=== PATIENT | female | born 1980 | race Caucasian/White ===

== ENCOUNTER 2020-05-02 08:17 | Day surgery (SDC) | payer OTHER ==
[~2020-05-02] VITALS: Ht 172.7 cm; Wt 137.5 kg
[~2020-05-02 08:17] MED LIST: CYCL10 PO; Crutch1 EACH MISC; HYDACE5 PO; IBUP800 PO; INDO25 PO; LEVSOD100 PO; MECL25 PO; METF500C PO; MULVITMINE PO; NAPR500 PO; Norco 5-325 Ta1 EACH PO; Omeprazole20 M1; PARO10 PO; PROM25 PO; SERT100 PO; SPIR25 PO; Zoloft100 MG PO
--- NOTE | 2020-05-02 10:29 | NUR ---
05/02/20 1029 Catina Finn PT NOTIFIED OF DELAY. PT RESTING COMFORTABLY WITH SPOUSE AT BEDSIDE, CALL LIGHT WITHIN REACH. DENIES NEEDS AT THIS TIME.
== END 2020-05-02 13:05 | disposition home or self-care (01) ==
LOC: ORSCSDS 08:17
PROVIDERS: Podiatrist Foot & Ankle Surgery
PROC: 0SBF4ZZ Excision of Right Ankle Joint, Percutaneous Endoscopic Approach (ICD-10-PCS; principal; 2020-05-02 10:00)
PROC: 0MQQ0ZZ Repair Right Ankle Bursa and Ligament, Open Approach (ICD-10-PCS; principal; 2020-05-02 10:00)
DX: M25.371 Other instability, right ankle (principal); M67.271 Synovial hypertrophy, not elsewhere classified, right ankle and foot; G47.33 Obstructive sleep apnea (adult) (pediatric); Z87.891 Personal history of nicotine dependence; E03.9 Hypothyroidism, unspecified; E66.01 Morbid (severe) obesity due to excess calories; Z68.42 Body mass index [BMI] 45.0-49.9, adult; Z79.899 Other long term (current) drug therapy
CPT/HCPCS: C1713; J0171; J0690; J1100; J1885; J2250; J2405; J2704; J3010; J7120

== ENCOUNTER 2020-12-15 07:45 | Emergency (ER) | payer OTHER ==
[~2020-12-15] VITALS: Ht 170.2 cm; Wt 134.7 kg
[2020-12-15] MEDS ORDERED: AMOCLA875 PO (08:16)
[2020-12-15 09:43] LABS: BASOPHILS ABSOLUTE AUTO 0.02 K/mm3 (0.00-0.23); BASOPHILS PERCENT AUTO 0 % (0-2); EOSINOPHILS PERCENT AUTO 2 % (0-6); Hematocrit 40.6 % (33.0-51.0); Hemoglobin 14.3 g/dL (11.5-16.0); IMMATURE GRAN ABSOLUTE AUTO 0.02 K/mm3 (0.00-0.10); IMMATURE GRAN PERCENT AUTO 0 % (0-1); LYMPHOCYTES ABSOLUTE AUTO 1.84 K/mm3 (0.84-5.20); LYMPHOCYTES PERCENT AUTO 28 % (21-46); MONOCYTES ABSOLUTE AUTO 0.45 K/mm3 (0.16-1.47); MONOCYTES PERCENT AUTO 7 % (4-13); Mean Corpuscular HGB 28.3 pg (26.0-34.0); Mean Corpuscular HGB Conc 35.2 g/dL (31.5-36.5); Mean Corpuscular Volume 80 fL (80-100); Mean Platelet Volume 9.4 fL (9.1-12.4); NEUTROPHILS ABSOLUTE AUTO 4.17 K/mm3 (1.96-9.15); NEUTROPHILS PERCENT AUTO 63 % (41-73); Platelet Count 274 K/mm3 (150-400); RDW Coefficient Variation 13.5 % (11.7-14.2); Red Blood Cell Count 5.05 M/mm3 (3.80-5.20)
[2020-12-15 09:50] LABS: Appearance, Urine Clear (Clear); Bilirubin, Urine Neg (Neg); Blood, Urine Neg (Neg); Color, Urine Yellow (P-Yellow); Glucose Qualitative, Urine Neg (Neg); Ketones, Urine Neg (Neg); Leukocyte Esterase, Urine Neg (Neg); Nitrite, Urine Neg (Neg); Protein, Urine Neg (Neg); Source, Urine Clean Catch; Urobilinogen, Urine NORM (Normal)
[2020-12-15 10:12] LABS: Alanine Aminotransfer (ALT/SGP 33 U/L (12-78); Albumin, Blood 3.8 g/dL (3.4-5.0); Albumin/Globulin Ratio 1.2 (0.8-1.8); Alk Phos 64 U/L (50-136); Anion Gap 7 mmol/L (6-16); Aspartate Aminotrans (AST/SGOT 15 U/L (12-37); Bilirubin, Total 0.5 mg/dL (0.1-1.0); Blood Urea Nitrogen 11 mg/dL (8-24); Bun/Creatinine Ratio 16.6 (12.0-20.0); CO2, Blood 24 mmol/L (21-32); Chloride, Blood 109 mmol/L (98-108); Creatinine, Blood 0.66 mg/dL (0.40-1.00); Globulin, Blood 3.3 g/dL (2.2-4.0); Glomerular Filtration Rate >60 (60-); Glucose, Blood 92 mg/dL (70-99); Potassium, Blood 4.1 mmol/L (3.5-5.5); Sodium, Blood 140 mmol/L (136-145); Total Protein, Blood 7.1 g/dL (6.4-8.2)
[2020-12-15] MEDS ORDERED: Naprosyn500 MG PO (11:20)
[2020-12-15] MEDS ORDERED: Roxicodone5 MG PO (11:45)
== END 2020-12-15 12:00 | disposition home or self-care (01) ==
LOC: ER 07:45
PROVIDERS: Emergency Medicine
DX: M54.5 Low back pain (principal); Z79.84 Long term (current) use of oral hypoglycemic drugs; Z79.899 Other long term (current) drug therapy
CPT/HCPCS: 36415; 51798; 80053; 81003; 81025; 85025; 96372-59; 96374; 99283-25; A9270; J1170; J1885

== ENCOUNTER → 2022-04-19 | Outpatient (CLI) | payer OTHER ==
[~2022-04-19] MED LIST changes: +AMOCLA875 PO; +Naprosyn500 MG PO; +Roxicodone5 MG PO
[2022-04-20 11:02] LABS: Candida species (DNA Probe) Negative (NEGATIVE); G. vaginalis (DNA Probe) Positive (NEGATIVE); T. vaginalis (DNA Probe) Negative (NEGATIVE)
[2022-04-21 13:10] LABS: CHLAMYDIA BY NAA Negative (Negative); GONOCOCCUS BY NAA Negative (Negative); TRICH VAG BY NAA Negative (Negative)
== END | disposition home or self-care (01) ==
LOC: LAB SHORT 12:48 → LAB 12:48
PROVIDERS: Family Medicine
DX: Z11.3 Encounter for screening for infections with a predominantly sexual mode of transmission (principal); N89.9 Noninflammatory disorder of vagina, unspecified
CPT/HCPCS: 87480; 87491; 87510; 87591; 87660; 87661

== ENCOUNTER 2022-05-14 16:25 | Emergency (ER) | payer OTHER ==
[~2022-05-14] VITALS: Ht 172.7 cm; Wt 71.2 kg
[2022-05-14 16:41] LABS: Source, Urine Clean Catch
[2022-05-14 16:47] LABS: BASOPHILS ABSOLUTE AUTO 0.03 K/mm3 (0.00-0.23); BASOPHILS PERCENT AUTO 0 % (0-2); EOSINOPHILS ABSOLUTE AUTO 0.08 K/mm3 (0.00-0.68); EOSINOPHILS PERCENT AUTO 1 % (0-6); Hematocrit 40.1 % (33.0-51.0); Hemoglobin 13.8 g/dL (11.5-16.0); IMMATURE GRAN ABSOLUTE AUTO 0.01 K/mm3 (0.00-0.10); IMMATURE GRAN PERCENT AUTO 0 % (0-1); LYMPHOCYTES ABSOLUTE AUTO 2.45 K/mm3 (0.84-5.20); LYMPHOCYTES PERCENT AUTO 37 % (21-46); MONOCYTES ABSOLUTE AUTO 0.33 K/mm3 (0.16-1.47); MONOCYTES PERCENT AUTO 5 % (4-13); Mean Corpuscular HGB 30.5 pg (26.0-34.0); Mean Corpuscular HGB Conc 34.4 g/dL (31.5-36.5); Mean Corpuscular Volume 89 fL (80-100); Mean Platelet Volume 10.2 fL (9.1-12.4); NEUTROPHILS ABSOLUTE AUTO 3.78 K/mm3 (1.96-9.15); NEUTROPHILS PERCENT AUTO 57 % (41-73); Platelet Count 250 K/mm3 (150-400); RDW Coefficient Variation 12.7 % (11.7-14.2); RDW Standard Deviation 41.7 fL (35.1-46.3); Red Blood Cell Count 4.53 M/mm3 (3.80-5.20); White Blood Cell Count 6.68 K/mm3 (4.00-11.30)
[2022-05-14 16:48] LABS: Appearance, Urine Clear (Clear); Bilirubin, Urine Neg (Neg); Blood, Urine 1+ (Neg); Color, Urine Yellow (P-Yellow); Glucose Qualitative, Urine Neg (Neg); Ketones, Urine Neg (Neg); Leukocyte Esterase, Urine Neg (Neg); Nitrite, Urine Neg (Neg); Protein, Urine Neg (Neg); Specific Gravity, Urine 1.015 (1.003-1.022); Urobilinogen, Urine NORM (Normal)
[2022-05-14 16:59] LABS: Red Blood Cells, Urine 0-2 /hpf (0-2); Squamous Epithelial Cells Rare /hpf (Few); White Blood Cells, Urine 0-2 /hpf (0-5)
[2022-05-14 17:03] LABS: Bacteria Few /hpf
[2022-05-14] MEDS ORDERED: PREG100 PO (18:35)
[2022-05-14 19:35] LABS: Albumin, Blood 3.7 g/dL (3.4-5.0); Albumin/Globulin Ratio 1.2 (0.8-1.8); Bilirubin, Total 0.6 mg/dL (0.1-1.0); Bun/Creatinine Ratio 25.5 (12.0-20.0); Calcium, Blood 8.8 mg/dL (8.5-10.1); Creatinine, Blood 0.75 mg/dL (0.40-1.00); Globulin, Blood 3.1 g/dL (2.2-4.0); Potassium, Blood 4.4 mmol/L (3.5-5.5); Total Protein, Blood 6.8 g/dL (6.4-8.2)
[2022-05-14] MEDS ORDERED: Norco 5-325 Ta1 EACH PO (22:37)
== END 2022-05-14 23:12 | disposition home or self-care (01) ==
LOC: ER 16:25
PROVIDERS: Physician Assistant
DX: K80.50 Calculus of bile duct without cholangitis or cholecystitis without obstruction (principal); K21.9 Gastro-esophageal reflux disease without esophagitis; E03.9 Hypothyroidism, unspecified; Z79.899 Other long term (current) drug therapy; Z88.6 Allergy status to analgesic agent; Z88.5 Allergy status to narcotic agent; Z87.891 Personal history of nicotine dependence; Z98.84 Bariatric surgery status
CPT/HCPCS: 36415; 74177; 76705; 80053; 81001; 81025; 83690; 85025; 99284-25; Q9967

== ENCOUNTER → 2022-05-24 | Outpatient (CLI) | payer OTHER ==
[~2022-05-24] MED LIST changes: +PREG100 PO
== END | disposition home or self-care (01) ==
LOC: LAB SHORT 08:46
DX: J02.9 Acute pharyngitis, unspecified (principal)
CPT/HCPCS: 87081

== ENCOUNTER 2022-07-23 06:17 | Day surgery (SDC) | payer OTHER ==
[~2022-07-23] VITALS: Ht 172.7 cm; Wt 69.0 kg
--- NOTE | 2022-07-23 07:13 | NUR ---
07/23/22 0713 Pedro Benjmain FIRST IV ATTEMPT FAILED BY RN SECOND AND THIRD IV ATTEMTS FAILED BY 2ND RN LAST ATTEMT SUCCESSFUL BY 3RD RN
--- NOTE | 2022-07-23 09:18 | NUR ---
07/23/22 0918 LINDSAY KING PAIN 5-6/10, CRAMPY. STATES SHOULDERS ARE SORE WELL. LYING RECLINER IN LEANED BACK POSITION. EATING AND DRINKING W/O DIFFICULTY. SON IN ROOM WITH PT. PT STATES VICODIN CAUSES ITCHING - BUT STILL WANTS PO NORCO FOR HER PAIN. HAS TRAMADOL ORDERED FOR HOME RX. WILL ALSO GIVE HER FENTANYL FOR PAIN.
== END 2022-07-23 09:54 | disposition home or self-care (01) ==
LOC: ORSCSDS 06:17
DX: K80.20 Calculus of gallbladder without cholecystitis without obstruction (principal); F32.A Depression, unspecified; Z79.899 Other long term (current) drug therapy
CPT/HCPCS: 74300; 88304; A9270; C1729; J0690; J1100; J2250; J2405; J2704; J2795; J3010; J7120

== ENCOUNTER → 2023-01-05 | Outpatient (CLI) | payer OTHER ==
[2023-01-07 17:12] LABS: HPV 16 Negative (Negative); HPV 18 Negative (Negative); HPV OTHER HR TYPES Positive (Negative)
== END | disposition home or self-care (01) ==
LOC: LAB SHORT 16:46 → LAB 16:46
PROVIDERS: Obstetrics & Gynecology
DX: Z01.419 Encounter for gynecological examination (general) (routine) without abnormal findings (principal)
CPT/HCPCS: 87624; G0145

== ENCOUNTER → 2023-01-05 | Outpatient (CLI) | payer OTHER | END | disposition home or self-care (01) | LOC: LAB SHORT 08:46 → PLD 08:46 | DX: N92.4 Excessive bleeding in the premenopausal period (principal) | CPT/HCPCS: 88305 ==

== ENCOUNTER → 2023-02-22 | Outpatient (CLI) | payer OTHER ==
[2023-02-23 10:01] LABS: Candida species (DNA Probe) Negative (NEGATIVE); G. vaginalis (DNA Probe) Positive (NEGATIVE); T. vaginalis (DNA Probe) Negative (NEGATIVE)
== END | disposition home or self-care (01) ==
LOC: LAB SHORT 14:16 → LAB 14:16
PROVIDERS: Obstetrics & Gynecology
DX: N76.0 Acute vaginitis (principal)
CPT/HCPCS: 87480; 87510; 87660

== ENCOUNTER 2023-07-21 12:19 | Emergency (ER) | payer OTHER ==
[~2023-07-21] VITALS: Ht 170.2 cm; Wt 68.0 kg
[~2023-07-21 12:19] MED LIST changes: +PROG100 PO
[2023-07-21 12:32] VITALS: BP 130/86
[2023-07-21 13:02] LABS: BASOPHILS ABSOLUTE AUTO 0.04 K/mm3 (0.00-0.23); BASOPHILS PERCENT AUTO 1 % (0-2); EOSINOPHILS ABSOLUTE AUTO 0.15 K/mm3 (0.00-0.68); EOSINOPHILS PERCENT AUTO 2 % (0-6); Hemoglobin 13.5 g/dL (11.5-16.0); IMMATURE GRAN ABSOLUTE AUTO 0.02 K/mm3 (0.00-0.10); IMMATURE GRAN PERCENT AUTO 0 % (0-1); LYMPHOCYTES ABSOLUTE AUTO 2.61 K/mm3 (0.84-5.20); LYMPHOCYTES PERCENT AUTO 37 % (21-46); MONOCYTES ABSOLUTE AUTO 0.46 K/mm3 (0.16-1.47); MONOCYTES PERCENT AUTO 7 % (4-13); Mean Corpuscular HGB Conc 33.8 g/dL (31.5-36.5); Mean Corpuscular Volume 86 fL (80-100); Mean Platelet Volume 9.9 fL (9.1-12.4); NEUTROPHILS ABSOLUTE AUTO 3.85 K/mm3 (1.96-9.15); NEUTROPHILS PERCENT AUTO 54 % (41-73); Platelet Count 258 K/mm3 (150-400); RDW Coefficient Variation 12.9 % (11.7-14.2); RDW Standard Deviation 40.5 fL (35.1-46.3); Red Blood Cell Count 4.65 M/mm3 (3.80-5.20); White Blood Cell Count 7.13 K/mm3 (4.00-11.30)
[2023-07-21 13:22] LABS: Albumin, Blood 4.1 g/dL (3.4-5.0); Albumin/Globulin Ratio 1.3 (0.8-1.8); Bilirubin, Total 0.5 mg/dL (0.1-1.0); Bun/Creatinine Ratio 17.9 (12.0-20.0); Calcium, Blood 8.9 mg/dL (8.5-10.1); Creatinine, Blood 0.73 mg/dL (0.40-1.00); Globulin, Blood 3.1 g/dL (2.2-4.0); Potassium, Blood 3.9 mmol/L (3.5-5.5); Total Protein, Blood 7.2 g/dL (6.4-8.2)
[2023-07-21] MEDS ORDERED: ONDA4ODT MM (16:00)
== END 2023-07-21 16:04 | disposition home or self-care (01) ==
LOC: ER 12:19
PROVIDERS: Physician Assistant
DX: R10.13 Epigastric pain (principal); Z88.5 Allergy status to narcotic agent; Z79.899 Other long term (current) drug therapy; F43.10 Post-traumatic stress disorder, unspecified; K21.9 Gastro-esophageal reflux disease without esophagitis; E03.9 Hypothyroidism, unspecified; Z87.891 Personal history of nicotine dependence
CPT/HCPCS: 74177; 80053; 83690; 85025; 96374; 96375; 99284-25; A9270; J1885; J2405; Q9967

== ENCOUNTER → 2023-10-28 | Outpatient (CLI) | payer OTHER ==
[~2023-10-28] MED LIST changes: +ONDA4ODT MM
== END | disposition home or self-care (01) ==
LOC: LAB SHORT 08:02 → LAB 08:02
DX: R10.13 Epigastric pain (principal)
CPT/HCPCS: 87338

== ENCOUNTER → 2024-08-30 | Outpatient (CLI) | payer OTHER ==
[2024-08-31 11:18] LABS: Bacterial Vaginosis PCR Negative (NEGATIVE); Candida glabrata-krusei, PCR NOT DETECTED (NOT DETECT)
[2024-08-31 11:24] LABS: Candida Group, PCR DETECTED (NOT DETECT)
== END | disposition home or self-care (01) ==
LOC: LAB 18:11 → LAB SHORT 18:11
DX: N89.8 Other specified noninflammatory disorders of vagina (principal)
CPT/HCPCS: 87481; 87661; 87801

== ENCOUNTER → 2024-10-10 | Outpatient (CLI) | payer OTHER | LOC: LAB 16:25 → LAB SHORT 16:25 | DX: R31.9 Hematuria, unspecified (principal) | CPT/HCPCS: 87086 ==

== ENCOUNTER → 2024-11-14 | Outpatient (CLI) | payer OTHER ==
[2024-11-14 19:52] LABS: Candida glabrata-krusei, PCR NOT DETECTED (NOT DETECT)
[2024-11-14 20:47] LABS: Bacterial Vaginosis PCR Positive (NEGATIVE); Candida Group, PCR DETECTED (NOT DETECT)
== END ==
LOC: LAB 18:17 → LAB SHORT 18:17
DX: N89.8 Other specified noninflammatory disorders of vagina (principal)
CPT/HCPCS: 81515